=== PATIENT | male | born 1960 | race Caucasian/White ===

== ENCOUNTER → 2023-07-31 | Outpatient (CLI) | payer MEDICARE, OTHER ==
--- NOTE | 2023-08-02 19:37 | MR ---
EXAMINATION TYPE: MR devon/teresa wo/w con DATE OF EXAM: 07/31/2023 COMPARISON: HISTORY: Pain and Numbness chest area down body, Rt side drop foot, tremors/spasms, CONTRAST: Performed utilizing 7.5 mL intravenous Gadavist gadolinium contrast. TECHNIQUE: Multiplanar multiecho imaging on a 3.0 Jeane magnet is performed through the cervical spin e. FINDINGS: The craniovertebral junction is normal. Vertebral body alignment is normal. C7-T1: No focal disc herniation or significant disc bulge is evident. No spinal canal stenosis or n eural foraminal stenosis is present. C6-7: There is a large left paracentral disc herniation extending to the spinal cord. Cord contact is present. Cord deformity is not evident. Borderline AP spinal canal stenosis is present. Neural tre en are narrowed bilaterally from uncovertebral joint hypertrophy. C5-6: There is a retrolisthesis of C5 on C6. Disc uncovering is present. Large disc herniation and s evere spinal canal stenosis measuring 0.9 cm. Signal abnormality is within the spinal cord posterior to the superior endplate of C6. There is cord flattening from the disc bulge. Neural foramen and narr owing from uncovertebral joint hypertrophy. C4-5: Mild disc bulge has mild anterior thecal sac compression. Cord contact may be present centrally . No AP spinal canal stenosis is present. Bilateral foraminal stenosis from uncovertebral joint hyper trophy is present.. C3-4: Disc bulge has anterior thecal sac contact. No spinal canal stenosis is present. Uncovertebral joint hypertrophy contributing to lateral foraminal canal narrowing.. C2-3: No focal disc herniation or significant disc bulge is evident. No spinal canal stenosis or aristeo ral foraminal stenosis is present. IMPRESSION: 1. Severe spinal canal stenosis due to disc uncovering. Some myelomalacia is likely present within th e spinal cord at the C5-6 level. Findings however appear stable 2011 comparison. 2. Left paracentral disc herniation C6-7 with less spinal canal narrowing. Appearance however is susie lar. EXAMINATION TYPE: MR devon/teresa wo/w con DATE OF EXAM: 07/31/2023 COMPARISON: HISTORY: Pain and Numbness chest area down body, Rt side drop foot, tremors/spasms, CONTRAST: Performed utilizing 7.5 mL intravenous Gadavist gadolinium contrast. TECHNIQUE: Multiplanar, multiecho imaging on a 3.0 Jeane magnet is performed through the thoracic spi ne. Spinal cord maintains normal signal through its visualized course. Vertebral body alignment is normal. Vertebral body heights are preserved. Disc heights are preserved. Disc hydration levels are preserved. There is a right paracentral disc bulge mid thoracic region, series 1401 image 16. This comes in clos e approximation of the spinal cord may have some minimal cord deformity. No AP spinal canal stenosis is present. There is a very tiny right paracentral disc protrusion with minimal anterior thecal sac contact witho ut cord deformity or cord contact within the mid to upper thoracic spine, series 1501 image 5. Some m inimal right paracentral disc bulge may be present in the upper thoracic spine without cord contact o r spinal canal stenosis. Series 1501, image 11. No spinal canal stenosis is evident. IMPRESSION: 1. Lower thoracic right paracentral focal bulge may have cord contact and mild cord deformity. 2. Minimal additional bulges or protrusions within the mid to upper thoracic spine discussed above wi thout cord contact cord deformity or spinal canal stenosis.
== END | disposition home or self-care (01) ==
LOC: RADMRIMAIN 20:30
PROVIDERS: ATTEND Psychiatry & Neurology Neurology
DX: M50.223 Other cervical disc displacement at C6-C7 level (principal); M62.838 Other muscle spasm; R29.2 Abnormal reflex; R26.1 Paralytic gait
CPT/HCPCS: 72156; 72157; A9585